=== PATIENT | female | born 1995 | race Caucasian/White ===

== ENCOUNTER 2019-08-06 11:23 | Outpatient (CLI) | payer BC ==
[~2019-08-06] VITALS: Ht 162.6 cm; Wt 87.3 kg
--- NOTE | 2019-08-06 11:45 | NUR ---
Patient arrives ambulatory from ER with concerns of possible PROM. Patient states she noted a "big gush of clear fluid when I stood up at 10:00 am". Patient denies vaginal bleeding and reports normal movement. Patient states she is unsure if she is still leaking fluid, states "maybe I've had some trickling, but I didn't change my underwear so it could just be old.". Patient is a G1 at 19.4 weeks reported gestation. Patient has been recieving care with [facility] in [place] and states her LOIS is 12/27/2019. Patient states she has noticed some "mild back pain and light cramping". Patient assisted to bed, VS obtained. FHTs dopplered for full minute at [address] Message left with Dr. Sommer's RN and and awaiting physician call. 1215- Dr. Sommer notified via phone. Reviewed patient reported history and concerns. Reviewed patient assessment. Request for orders regarding plan of care. Orders for no SVE, orders for ultrasound to assess growth, fluid level, placenta, and cervical length. No further orders at this time. Patient updated on plan of care. Denies questions.
--- NOTE | 2019-08-06 14:45 | NUR ---
See physician notification. Patient updated on plan of care for discharge. Discussed orders for pelvic rest until seen by champagne maker and to contact champagne maker to schedule follow up appt within the week. FHTs dopplered at 150 bpm for full minute. Patient denies contractions or cramping.
--- NOTE | 2019-08-06 15:21 | NUR ---
Discharge instructions given on discomforts of and early labor signs, encouraged to return if condition changes or further concerns. Pt states understanding of instructions and to follow up with ultrasonic cleaner this week. Pt leaves unit ambulatory with mother.
== END 2019-08-06 15:25 | disposition home or self-care (01) ==
LOC: LDRO 11:23
DX: O99.89 Other specified diseases and conditions complicating pregnancy, childbirth and the puerperium (principal); M54.9 Dorsalgia, unspecified; R25.2 Cramp and spasm; Z3A.19 19 weeks gestation of pregnancy

== ENCOUNTER 2022-10-30 00:17 | Outpatient (CLI) | payer BC, MEDICAID ==
[~2022-10-30] VITALS: Ht 167.6 cm; Wt 100.0 kg
[~2022-10-30 00:17] MED LIST: IBU800 M1 PO; MAGNESIUM500 MG PO; PERCOCET 325 MG1 TA2 PO; PRENATAL MVI
--- NOTE | 2022-10-30 00:25 | NUR ---
G3L1. 39.4. Ambulatory to LDR 4 with spouse. Clean gown on. EFM and TOCO explained and applied. Pt states she has been beto since 2029 tonight and reports contractions about every 4 mins. Denies leaking of fluids or vaginal bleeding. Reports good movement. Plan of care explained. Pt desiring a TOLAC and has plan. Pt and spouse aware of the hospital's TOLAC/ policy and very agreeable with what is required during labor. Pt states she is a late care transfer from [place].
[2022-10-30] MEDS ORDERED: NATURAL IRON65 MG PO (00:43)
[2022-10-30 01:00] VITALS: BP 122/68; PULSE 106; TEMP 97.9
--- NOTE | 2022-10-30 01:10 | NUR ---
Pt repositioned to hands knees per request. RN remains at beside adjusting EFM but monitoring continues to be difficult due to maternal position. 0130: [facility]. RN remains at beside and continues to adjust monitor. Monitoring continues to be difficult due to maternal position. 0141: Pt off monitor to use restroom.
[2022-10-30 01:30] VITALS: BP 107/59; PULSE 77
--- NOTE | 2022-10-30 02:13 | NUR ---
SVE unchanged. Pt educated on plan of care. 0232: called and notified of pt's status. See physican notification. 0245: Discharge instructions given to pt and spouse who verbalize their understanding. Denies questions. Pt ambulatory off unit and home with spouse.
== END 2022-10-30 02:45 | disposition home or self-care (01) ==
LOC: LDRO 00:17
DX: O62.9 Abnormality of forces of labor, unspecified (principal); Z3A.39 39 weeks gestation of pregnancy

== ENCOUNTER 2022-11-04 17:36 | Outpatient (CLI) | payer BC, MEDICAID ==
[~2022-11-04] VITALS: Ht 167.6 cm; Wt 100.9 kg
[~2022-11-04 17:36] MED LIST changes: +NATURAL IRON65 MG PO
--- NOTE | 2022-11-04 17:45 | NUR ---
PATIENT AMBULATORY TO UNIT WITH SPOUSE, PATIENT ORIENTED TO LABOR ROOM 3 AND ASSISTED INTO GOWN. PATIENT REPORTS TRICKLE OF FLUID AT 1330 AND CONTRACTIONS EVERY 2-4 MINUTES SINCE 1400. EFM AND TOCO PLACED AND TRACING WELL AT THIS TIME. SVE /-2, AMNITRACE NEGATIVE.
[2022-11-04 18:15] VITALS: BP 119/73; PULSE 86
[2022-11-04 18:20] VITALS: BP 119/66; PULSE 85; TEMP 98.6
--- NOTE | 2022-11-04 19:49 | NUR ---
Patient sitting on edge of bed very irritated with monitors. Requested to do a SVE stated she thought it would be atleast an hour before that would be done. Instructed it had been over an hour . Patient stated it would be alright.
--- NOTE | 2022-11-04 19:54 | NUR ---
pATIENT TOLERATED SVE. 3-4 70% -2. NO CHANGE NOTED BALLOTABLE.
--- NOTE | 2022-11-04 19:58 | NUR ---
DR Nichols called informed no chnage to cervic. with good accels no decels. Instructed to send her home with labor preautions.
== END 2022-11-04 19:30 | disposition home or self-care (01) ==
LOC: LDRO 17:36
DX: Z34.93 Encounter for supervision of normal pregnancy, unspecified, third trimester (principal); Z3A.40 40 weeks gestation of pregnancy

== ENCOUNTER 2022-11-08 14:56 | Inpatient (IN) | payer BC, MEDICAID ==
[~2022-11-08] VITALS: Ht 167.7 cm; Wt 100.9 kg
[2022-11-08] MEDS ORDERED: EVENING PRIMRO500 MG (15:26)
[2022-11-08 15:35] VITALS: BP 129/60; PULSE 104; TEMP 98
[2022-11-08 16:48] LABS: BASO % 0.2 % (0.0-2.0); EOS # 0.1 K/mm3 (0.0-0.7); EOS % 0.8 % (0.0-4.0); GRAN # 6.9 K/mm3 (1.4-6.5); GRAN % 76.2 % (42.2-75.2); HEMOGLOBIN 11.3 g/dl (12.5-16.0); LYMPH # 1.3 K/mm3 (1.2-3.4); MEAN CELL VOLUME 77 fl (80.0-100.0); MEAN CORPUSCULAR HEMOGLOBIN 25 pg (27-31); MEAN CORPUSCULAR HGB CONC 32 g/dl (33.0-37.0); MONO # 0.7 K/mm3 (0.1-0.6); MONO % 8.1 % (1.7-9.3); PLATELET COUNT 313 K/mm3 (130-400); REDCELL DISTRIBUTION WIDTH-CV 16.1 % (11.5-14.5)
[2022-11-08 16:49] LABS: HEMATOCRIT 35.5 % (37.0-47.0)
--- NOTE | 2022-11-08 17:45 | NUR ---
PATIENT TO ROOM AT 1500 DUE TO REPORTS OF SROM. PATIENT A TOLAC WITH A LATE REFERALL TO DR RIVERA FROM [employer] SERVICE MANAGER Kassidy BRAEUX. PATIENT REFUSED GLUCOSE TESTING AND BABY IS MEASURING LGA AND HX OF C SECTION. NO OTHER PROBLEMS NOTED OTHER THAN AXIETY. 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 PATIENT WISHES TO GO ALL NATURAL AND REFUSING IV FLUIDS AND PITOCIN AT THIS TIME. SVE IS 4/80/-3. CLEAR SROM AT 1400. IV STARTED, LABS DRAWN. BABY CATEGOTY 1 TRACING. PATIENT HAS BEEN AMBULATING ON UNIT ON AND OFF WITH HANDS FREE MONITOR SINCE 1600. TOLERATING WELL. CONTRACTIONS ARE NOT TRACING WELL BUT ARE EVERY 8-10 MINTUES APART WHEN TRACING. PATIENT STOPPING TO BREATH THROUGH THEM WHILE WALKING. WILL CONTINUE TO MONITOR.
--- NOTE | 2022-11-08 18:20 | NUR ---
Report received from Kassidy CARTER. Pt ambulating in hallway after pitocin was started by Kassidy CARTER. 1910: Consents finished and reviewed with pt and spouse. Questions answered and plan of care explained to pt and spouse who verbalize their understanding.
[2022-11-08 18:30] VITALS: BP 119/70; PULSE 102
[2022-11-08 18:40] LABS: ALBUMIN 2.8 gm/dL (3.5-5.0); BILIRUBIN,TOTAL 0.3 mg/dL (0.2-1.2); CALCIUM 8.8 mg/dL (8.4-10.2); CREATININE, serum 0.61 mg/dL (0.57-1.11); POTASSIUM 3.8 mmol/L (3.5-4.5); TOTAL PROTEIN 6.1 gm/dL (6.2-8.1)
[2022-11-08 19:15] VITALS: BP 114/67; PULSE 86; TEMP 98.6
[2022-11-08 20:00] VITALS: BP 127/64; PULSE 99
[2022-11-08 21:00] VITALS: BP 126/60; PULSE 83; TEMP 97.8
[2022-11-08 21:45] VITALS: BP 129/61; PULSE 90
--- NOTE | 2022-11-08 21:47 | NUR ---
Pt repositioned to left lateral position. [id number]: This RN at bedside adjusting monitors. 2203: Pt repositioned. 2301: at bedside. SVE unchanged. Provider recommending at this time. Pt wanting to call her facsimile operator for possible options. Provider remains on unit. 2330: Pt wanting to try some different options with her facsimile operator when she gets here and continue attempt to deliver vaginally. at nurses station and updated on pt's wishes. 0000: Pt at bedside with facsimile operator changing positions. 0030: at bedside requesting to check pt's cervix. Pt denies wanting this at this time. Provider remains at nurses station. [id number]: Difficulty tracing FHR due to maternal position on knee chest. RN remains at bedside to adjust monitor. 0051: Pt assisted standing position and starting to do lunges with facsimile operator.
[2022-11-09] VITALS (18 sets, daily range): BP systolic 89–116; BP diastolic 43–74; PULSE 50–114; TEMP 97.7–98.2
--- NOTE | 2022-11-09 02:22 | NUR ---
at bedside to assess pt's progress. SVE unchanged. Provider continuing to recommend . 0225: Pt agreeable to at this time. Procedure and questions answered by . Pt prepped for surgery. 0254: Pt off monitors and ambulatory back to OR for .
--- NOTE | 2022-11-09 06:30 | NUR ---
THIS RN TOOK OVER CARE. IN ROOM, PT ASLEEP, BABY IN ARMS. THIS RN MOVED BABY TO CRIB AND TOLD MOTHER TO PLACE BABY IN CRIB WHEN SLEEPING. MOTHER AGREEABLE. WILL CONTINUE WITH POC.
--- NOTE | 2022-11-09 12:44 | NUR ---
1230 THIS SANIPRACTIC PHYSICIAN ASSUMES CARE OF PATIENT FROM MED BRIAN RN.
[2022-11-10 00:45] VITALS: BP 125/68; PULSE 75; TEMP 98
[2022-11-10 07:20] LABS: HEMOGLOBIN 10.5 g/dl (12.5-16.0)
[2022-11-10 07:24] LABS: HEMATOCRIT 34.1 % (37.0-47.0)
[2022-11-10 08:00] VITALS: BP 104/54; PULSE 67
--- NOTE | 2022-11-10 08:09 | NUR ---
0800 this rn to room to complete am vitals/assessment/meds. POC reviewed, white board updated. Questions/concerns invited, none at this time.
--- NOTE | 2022-11-10 09:32 | NUR ---
Initial visit; Parents thanked Cascade Operator for offering congratulations and God's blessings for the of their son. Cascade Operator wished them well.
[2022-11-10 16:00] VITALS: BP 112/48; PULSE 72
[2022-11-10 20:15] VITALS: BP 131/59; PULSE 72; TEMP 97.8
[2022-11-11 07:49] VITALS: BP 108/55; PULSE 78; TEMP 97.9
== END 2022-11-11 11:53 | disposition home or self-care (01) | DRG 787 ==
LOC: LDRO 14:56 → LDR 15:50 → OB 15:50
PROVIDERS: ADMIT Obstetrics & Gynecology
PROC: 10D00Z1 Extraction of Products of Conception, Low, Open Approach (ICD-10-PCS; principal; 2022-11-09)
DX: O34.211 Maternal care for low transverse scar from previous cesarean delivery (principal); D62 Acute posthemorrhagic anemia; O48.0 Post-term pregnancy; O36.63X0 Maternal care for excessive fetal growth, third trimester, not applicable or unspecified; O99.02 Anemia complicating childbirth; O69.81X0 Labor and delivery complicated by cord around neck, without compression, not applicable or unspecified; J30.2 Other seasonal allergic rhinitis; O99.52 Diseases of the respiratory system complicating childbirth; Z37.0 Single live birth; Z97.4 Presence of external hearing-aid; Z3A.40 40 weeks gestation of pregnancy; Z88.0 Allergy status to penicillin; Z23 Encounter for immunization
CPT/HCPCS: J0171; J0690; J1100; J1885; J2370; J2405; J2590; J7120